=== PATIENT | female | born 1970 | race Caucasian/White ===

== ENCOUNTER 2019-07-19 14:20 | Outpatient (CLI) | payer OTHER ==
--- NOTE | 2019-07-19 15:47 | MMO ---
Bilateral MAMMO Bilat Diag [facility]. CLINICAL HISTORY: Patient is 48 years old and is seen for diagnostic exam. VIEWS: The views performed were: bilateral craniocaudal with tomosynthesis; bilateral mediolateral oblique with tomosynthesis; and bilateral mediolateral with tomosynthesis. FILMS COMPARED: The present examination has been compared to a prior imaging study performed at [facility] on 07/19/2019. This study has been interpreted with the assistance of computer-aided detection. MAMMOGRAM FINDINGS: The breasts are heterogeneously dense, which could obscure a lesion on mammography. There are benign appearing calcifications seen in both breasts. NO MAMMOGRAPHIC OR SONOGRAPHIC ABNORMALITIES ARE PRESENT TO CORRELATE WITH THE SITE OF PALPABLE CONCERN. THE PATIENT WILL BE REFERRED BACK TO HER CLINICIAN FOR FURTHER CARE. BIOPSY SHOULD NOT BE PRECLUDED BY THE ABSCENCE OF IMAGING FINDINGS, IN THE SETTING OF CLINICAL CONCERN FOR MALIGNANCY. Incidental simple cyst measuring 6 mm seen in the right breast 9:00 position. This is not likely palpable due to its size. There are no suspicious masses, suspicious calcifications, or new areas of architectural distortion. IMPRESSION: THERE IS NO MAMMOGRAPHIC EVIDENCE OF MALIGNANCY. NO MAMMOGRAPHIC OR SONOGRAPHIC ABNORMALITIES ARE PRESENT TO CORRELATE WITH THE SITE OF PALPABLE CONCERN. THE PATIENT WILL BE REFERRED BACK TO HER CLINICIAN FOR FURTHER CARE. BIOPSY SHOULD NOT BE PRECLUDED BY THE ABSCENCE OF IMAGING FINDINGS, IN THE SETTING OF CLINICAL CONCERN FOR MALIGNANCY. A ROUTINE FOLLOW-UP MAMMOGRAM IN 1 YEAR IS RECOMMENDED. THE RESULTS OF THIS EXAM WERE SENT TO THE PATIENT. ACR BI-RADS Category 2 - Benign finding MAMMOGRAPHY NOTE: 1. A negative mammogram report should not delay a biopsy if a dominant of clinically suspicious mass is present. 2. Approximately 10% to 15% of breast cancers are not detected by mammography. 3. Adenosis and dense breasts may obscure an underlying neoplasm. Reported by: RAIZA POPE MD Electonically Signed: [id number]
--- NOTE | 2019-07-19 16:04 | ULT ---
RIGHT BREAST DIAGNOSTIC ULTRASOUND: 07/19/19 INDICATION: Palpable abnormality in the right breast; physician palpated. The patient could not report a certain region than being on the outer aspect of the right breast. Within the outer region of the right breast, no abnormality was seen except for a very small 4 mm x 6 mm x 4 mm cyst. IMPRESSION: BIRADS 2: Benign Finding(s) Routine annual screening mammography (for women over age 40). Small cyst seen within the outer aspect of the right breast 9 o'clock position, 3 cm from the nipple. No additional sonographic abnormality is evident. POS: OFF
== END 2019-07-19 14:21 | disposition home or self-care (01) ==
LOC: BICMAMMO 14:20
PROVIDERS: ATTEND Family Medicine
DX: N63.0 Unspecified lump in unspecified breast (principal); N60.01 Solitary cyst of right breast
CPT/HCPCS: 77066; G0279

== ENCOUNTER 2025-06-02 10:48 | Outpatient (CLI) | payer OTHER | END 2025-06-02 10:49 | disposition home or self-care (01) | LOC: ULT 10:48 | PROVIDERS: ATTEND Nurse Practitioner Family | DX: R59.0 Localized enlarged lymph nodes (principal) | CPT/HCPCS: 76536 ==